=== PATIENT | male | born 2000 | race Caucasian/White ===

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

== ENCOUNTER → 2020-12-27 | Outpatient (CLI) | payer BC | LOC: LAB 19:12 | DX: R30.9 Painful micturition, unspecified (principal) ==